=== PATIENT | male | born 1985 | race Two or more races ===

== ENCOUNTER 2018-05-04 16:15 | Emergency (ER) | payer OTHER ==
[~2018-05-04] VITALS: Ht 162.6 cm; Wt 86.2 kg
[2018-05-04 16:17] VITALS: BP 131/82
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
[2018-05-04] MEDS ORDERED: Norco 5mg/325mg tab ORAL ONE (16:45)
[2018-05-04] MEDS ORDERED: Methocarbamol 500mg tab ORAL ONE (16:45)
--- NOTE | 2018-05-04 16:50 | NUR ---
ED Nurse Note: Pt was sent to CT scan.
--- NOTE | 2018-05-04 17:24 | NUR ---
ED Nurse Note: pt came back from CT scan in stable condition.
[2018-05-04] MEDS ORDERED: IBUPROFEN600 MG ORAL (18:25)
[2018-05-04] MEDS ORDERED: ROBAXIN500 MG PO (18:25)
[2018-05-04] MEDS ORDERED: TRAMADOL HCL50 MG ORAL (18:25)
[2018-05-04] MEDS ORDERED: LIDOCAINE700 M1 TP (18:25)
[2018-05-04 18:40] VITALS: BP_SYST 128; BP_SYST 131; BP_DIAS 80; BP_DIAS 82
--- NOTE | 2018-05-04 18:42 | NUR ---
ED Nurse Note: Patient is being discharged, cleared by ER PA . Patient is a/o x4, discharge instruction/paper/prescription given to the patient, patient verbalized understanding and signed the paper. ID band removed. Patient ambulated out of ED with steady gait with all belongings.
--- NOTE | 2018-05-04 20:34 | Diagnostic Imaging Report ---
EXAM: CT Chest Without Intravenous Contrast CLINICAL HISTORY: PAIN TECHNIQUE: Axial computed tomography images of the chest without intravenous contrast. CTDI is 25.12 mGy and DLP is 1011 mGy-cm. One or more of the following dose reduction techniques were used: automated exposure control, adjustment of the mA and/or kV according to patient size, use of iterative reconstruction technique. COMPARISON: No relevant prior studies available. FINDINGS: Lungs: Unremarkable. No mass. No consolidation. Pleural space: Unremarkable. No pneumothorax. No significant effusion. Heart: Unremarkable. No cardiomegaly. No significant pericardial effusion. Bones/joints: Unremarkable. No acute fracture. No dislocation. Soft tissues: Hepatic steatosis. Slight distention of the left renal collecting system. Vasculature: Unremarkable. No thoracic aortic aneurysm. Lymph nodes: Unremarkable. No enlarged lymph nodes. IMPRESSION: No acute thoracic injury. Slight distention of the left renal collecting system. Hepatic steatosis.
--- NOTE | 2018-05-04 23:10 | Diagnostic Imaging Report ---
EXAM: CT Head Without Intravenous Contrast CLINICAL HISTORY: PAIN TECHNIQUE: Axial computed tomography images of the head/brain without intravenous contrast. CTDI is 70.38 mGy and DLP is 1491.99 mGy-cm. One or more of the following dose reduction techniques were used: automated exposure control, adjustment of the mA and/or kV according to patient size, use of iterative reconstruction technique. COMPARISON: No relevant prior studies available. FINDINGS: Brain: No intracranial hemorrhage or mass effect. Ventricles: Unremarkable. No ventriculomegaly. Bones/joints: Unremarkable. No acute fracture. Soft tissues: Unremarkable. Sinuses: Left maxillary sinusitis Mastoid air cells: Unremarkable as visualized. No mastoid effusion. IMPRESSION: No acute brain or skull injury. Left maxillary sinusitis.
--- NOTE | 2018-05-04 23:12 | Diagnostic Imaging Report ---
EXAM: CT Maxillofacial Without Intravenous Contrast CLINICAL HISTORY: PAIN TECHNIQUE: Axial computed tomography images of the face without intravenous contrast. CTDI is 28.19 mGy and DLP is 546.91 mGy-cm. One or more of the following dose reduction techniques were used: automated exposure control, adjustment of the mA and/or kV according to patient size, use of iterative reconstruction technique. COMPARISON: No relevant prior studies available. FINDINGS: Bones/joints: No acute fracture. Soft tissues: Unremarkable. Orbits: Unremarkable. Sinuses: Mucoperiosteal thickening in the maxillary sinuses, left greater than right. Suspect air-fluid level on the left. Correlate for symptoms of sinusitis.. IMPRESSION: No fracture. Maxillary sinusitis.
--- NOTE | 2018-05-04 23:48 | Diagnostic Imaging Report ---
EXAM: XR Lumbar Spine, 2 or 3 Views CLINICAL HISTORY: PAIN TECHNIQUE: Frontal and lateral views of the lumbar spine. COMPARISON: No relevant prior studies available. FINDINGS: Vertebrae: Minimal lumbar levocurvature may be positional. No acute fracture. Disc spaces: No acute findings. No significant narrowing. Soft tissues: Unremarkable. IMPRESSION: No fracture or traumatic malalignment
--- NOTE | 2018-05-04 23:49 | Diagnostic Imaging Report ---
EXAM: CT Cervical Spine Without Intravenous Contrast CLINICAL HISTORY: PAIN TECHNIQUE: Axial computed tomography images of the cervical spine without intravenous contrast. CTDI is 14.94 mGy and DLP is 286.9 mGy-cm. One or more of the following dose reduction techniques were used: automated exposure control, adjustment of the mA and/or kV according to patient size, use of iterative reconstruction technique. COMPARISON: No relevant prior studies available. FINDINGS: Vertebrae: No acute fracture. Mild dextrocurvature is likely positional. Discs/spinal canal/neural foramina: No acute process. Soft tissues: Unremarkable. IMPRESSION: No fracture.
== END 2018-05-04 18:43 | disposition home or self-care (01) ==
LOC: EDBD 16:15 → EMR 16:45
DX: S00.83XA Contusion of other part of head, initial encounter (principal); S20.219A Contusion of unspecified front wall of thorax, initial encounter; S13.9XXA Sprain of joints and ligaments of unspecified parts of neck, initial encounter; M54.5 Low back pain; V43.52XA Car driver injured in collision with other type car in traffic accident, initial encounter; Y92.414 Local residential or business street as the place of occurrence of the external cause
CPT/HCPCS: 70450; 70486; 71250; 72020; 72125; 99284